=== PATIENT | female | born 1995 | race Caucasian/White ===

== ENCOUNTER 2017-12-08 23:47 | Inpatient (IN) | payer OTHER ==
[~2017-12-08] VITALS: Ht 157.5 cm; Wt 71.2 kg
[2017-12-09] MEDS ORDERED: PRENATAL TABLE1 EACH PO (00:33)
== END 2017-12-11 12:56 | disposition home or self-care (01) | DRG 775 ==
LOC: LDR 23:47 → OB/GYN 12-09 16:05 → LDR 12-09 16:46 → OB/GYN 12-09 19:04 → LDR 12-09 19:04 → OB/GYN 12-09 19:04
PROC: 4A1HXCZ Monitoring of Products of Conception, Cardiac Rate, External Approach (ICD-10-PCS; 2017-12-08)
PROC: 0UQGXZZ Repair Vagina, External Approach (ICD-10-PCS; principal; 2017-12-09)
PROC: 10E0XZZ Delivery of Products of Conception, External Approach (ICD-10-PCS; 2017-12-09)
DX: O71.4 Obstetric high vaginal laceration alone (principal); O60.14X0 Preterm labor third trimester with preterm delivery third trimester, not applicable or unspecified; O42.913 Preterm premature rupture of membranes, unspecified as to length of time between rupture and onset of labor, third trimester; Z3A.36 36 weeks gestation of pregnancy; Z37.0 Single live birth